=== PATIENT | male | born 2000 | race Caucasian/White ===

== ENCOUNTER 2022-04-23 14:47 | Outpatient (CLI) | payer OTHER, SELFPAY | END 2022-04-23 14:48 | disposition home or self-care (01) | PROVIDERS: Visit Provider Emergency Medicine | DX: R45.851 Suicidal ideations (principal) | CPT/HCPCS: A0425; A0429 ==

== ENCOUNTER 2022-04-23 15:09 | Emergency (ER) | payer OTHER, SELFPAY ==
[2022-04-23 15:17] VITALS: BP 164/98; PULSE 95; RESP 18; TEMP 36.7; O2SAT 96; BMI 35.0
--- NOTE | 2022-04-23 15:21 | ED.NURSE ---
Pt undressed for this nurse and put on paper scrubs. Pt is in room number 5 that was made a safe room for mental health crisis. Pt has small billfold, Iphone and airpods in her possession. Primary nurse notified that these were still in her possession. Clothes were removed from room and placed in belongings bags and handed to security for inventory. Pt states she has a plan to drink excessively and take a bottle of pills. She believes police are removing these items from her apartment but she would be able to easily access these items if needed.
--- NOTE | 2022-04-23 16:11 | ED.GENADULT ---
HPI - General Adult General Chief complaint: Altered Mental Status Stated complaint: Mental Health Time Seen by Provider: 04/23/22 15:19 History of Present Illness HPI narrative: 21-year-old male in transition goes by Demi. Presenting with EMS to the emergency department with feelings of wanting to . Has struggled with depression for a long time. Some years ago started hormone pills and more recently switched to injections. Does take Abilify regularly and have Zyprexa available as a p.r.n.. Sounds like 5 mg typically would cause sleep. Was apparently surprised over the last 2 days to find that a relationship that they have been in is ending. Made a statement that would take a bunch of pills namely the Zyprexa, and drink alcohol until they ; and did feel that way at the time. Admits that since time in the emergency department no longer feels that intensely, does not want to now. Originally from [facility] specifically, college [place] in [place] [facility] [place]. Looking to go into [employer]. Looking forward to having a job someday. Enjoys eating out with friends. Looking forward to rugby and hockey practice of some sort this evening. Has some games this weekend. Other stressors includes studies though these generally have been going well. Does have a bit of a pile up of ?homework ?. Does see a therapist in town weekly. Due to see them in 2 days time this Thursday. Does have a psychiatric nurse practitioner as well who prescribes medications. Has not been hospitalized from a psychiatric perspective in the past. Has engaged in self-harm behaviors more remotely with head banging. Related Data Allergies Allergy/AdvReac Type Severity Reaction Status Date / Time No Known Drug Allergies Allergy Verified 04/23/22 15:20 Review of Systems Status of ROS: Reports: 6 or more systems reviewed and unremarkable except as noted in History and below PFSH PFS Social History Smoking Status: Never smoker Do you use any of these nicotine containing products: None Second hand tobacco smoke exposure: No How often do you have a drink containing alcohol: 2-4 times a month AUDIT-C Alcohol total score: 2 Non-prescribed substance use: denies use Exam Narrative: Exam Narrative: Pleasant. Large stature. Shaved head into [place] fluidly easily. Breathing easily. Speech isn't pressured or slurred. Mood is a little down. Affect is appropriate. Appropriately casually dressed on arrival. Moving all extremities without difficulty. Well perfused core in extremities. Oropharynx unremarkable. Cranial nerves 2-12 to be intact. Breathing easily lungs appear to be clear. Heart in a regular rate and rhythm. Skin is warm and dry without indication of self-harm behavior. Const: Vital Signs, click to edit/add: Vital Signs - 24 hr 04/23/22 15:17 Temperature 98.0 F Pulse Rate [Pulse Oximeter] 95 Respiratory Rate 18 Blood Pressure [Ri ght Upper Arm] 164/98 H Pulse Oximetry 96 Oxygen Delivery Me thod Room Air Documenting provider has reviewed patient's vital signs: yes Course Vital Signs Vital signs: Initial Vital Signs Temperature 98.0 F 04/23/22 15:17 Temperature Source Temporal Artery Scan 04/23/22 15:17 Pulse Rate 95 04/23/22 15:17 Pulse Rhythm 04/23/22 15:17 Pulse Strength 3+ Normal 04/23/22 15:17 Respiratory Rate 18 04/23/22 15:17 Blood Pressure 164/98 H 04/23/22 15:17 Blood Pressure Mean 120 04/23/22 15:17 Blood Pressure Position Sitting 04/23/22 15:17 Pulse Oximetry 96 04/23/22 15:17 Oxygen Delivery Method 04/23/22 15:17 Vital Signs Temperature 98.0 F 04/23/22 15:17 Pulse Rate 95 04/23/22 15:17 Respiratory Rate 18 04/23/22 15:17 Blood Pressure 164/98 H 04/23/22 15:17 Pulse Oximetry 96 04/23/22 15:17 Oxygen Delivery Method 04/23/22 15:17 Temperature 98.0 F 04/23/22 15:17 Pulse Rate 95 04/23/22 15:17 Respiratory Rate 18 04/23/22 15:17 Blood Pressure 164/98 H 04/23/22 15:17 Pulse Oximetry 96 04/23/22 15:17 Oxygen Delivery Method 04/23/22 15:17 Medical Decision Making MDM Narrative Medical decision making narrative: Demi is well connected for outpatient psych. Demonstrating insight and forward thinking. Denies suicidality at this time. She thought that it would be helpful but not critical to talk with DEC car dropper. Unfortunately availability will be hours from now and Demi is looking forward to activities this evening and has studies. En lieu of above, I did then manage to have/sit in with a conversation with Demi's therapist with whom she appears to have a good relationship. Feels safe for discharge and close follow up. Contracts for safety with plan to spend the night at a friends. Discharge Plan Discharge Clinical Impression: Other social stressor, Suicidal ideation Patient Disposition: Home, Self-Care Condition: Improved Additional Instructions: Thanks for doing that contract for safety with me. It does help to stay busy in the short term at least. Please follow-up with your therapy appointment on Thursday as discussed. If you, after talking to therapist, mother, friends, family still might feel unsafe, please return to the emergency department. Follow Up/Referrals: Edward Jaeger MD [Staff Physician] - Stand Alone Forms: [employer] Info Instructions
--- NOTE | 2022-04-23 17:28 | PC.NURSE ---
offered to order patient meal tray, patient declined, continues to be pleasant and cooperative.
== END 2022-04-23 17:50 | disposition home or self-care (01) ==
PROVIDERS: Emergency Provider Family Medicine
DX: R45.851 Suicidal ideations (principal); F43.89 Other reactions to severe stress
CPT/HCPCS: 99284